=== PATIENT | female | born 1980 | race Caucasian/White ===

== ENCOUNTER 2016-06-18 19:17 | Emergency (ER) | payer OTHER ==
[2016-06-18 19:57] VITALS: BP 144/85
--- NOTE | 2016-06-18 20:45 | UC ---
Throat Pain/Nasal [place] HPI - HPI Summary HPI Summary: ST starting 3-4 days ago, lots of trouble with eating and talking. Also coughing and blowing nose, says a few weeks ago she had a cold followed by "sinusy stuff that went away on its own." Has been carrying rescue inhaler, she only needs it when she gets sick. Denies recent abx, steroids, inhaled steroids , or DM. - History of Current Complaint Chief Complaint: UCRespiratory Stated Complaint: SORE THROAT Time Seen by Provider: 06/18/16 20:27 Hx Obtained From: Patient Hx Last Menstrual Period: MIRENA IUD ?: No Onset/Duration: Gradual Onset, Lasting Days Severity: Moderate Cough: None - Allergies/Home Medications Allergies/Adverse Reactions: Allergies Allergy/AdvReac Type Severity Reaction Status Date / Time Prochlorperazine Allergy Severe "PUT ME Verified 06/18/16 19:56 [From Compazine] INTO A VEGETABLE STATE" Sulfa Drugs Allergy Severe TONGUE, Verified 06/18/16 19:56 THROAT SWELLING Home Medications: Home Medications Gabapentin CAP(*) [Neurontin 300 CAP(*)] 300 mg PO DAILY 06/18/16 [History Confirmed 06/18/16] Gerd Med* 06/18/16 [History] Topiramate TAB(*) [Topamax 25 MG(*)] 06/18/16 [History] PMH/Surg Hx/FS Hx/Imm Hx Endocrine History Of: Denies: Diabetes, Thyroid Disease Cardiovascular History Of: Reports: Cardiac Disorders - during Denies: Hypertension, Pacemaker/ICD Respiratory History Of: Denies: COPD, Asthma GI/ History Of: Denies: Ulcer, Renal Disease - Surgical History Surgical History: Yes Surgery Procedure, Year, and Place: [place] teeth extractions. TUBE THAT WENT THROUGH TEAR DUCT DOWN NOSE AND REMOVED - Family History Known Family History: Positive: Hypertension - Social History Occupation: Employed Full-time Lives: With Family Alcohol Use: Rare Substance Use Type: None Smoking Status (MU): Current Every Day Smoker Type: Cigarettes Amount Used/How Often: 2-6 cig./day Have You Smoked in the Last Year: Yes When Did the Patient Quit Smoking/Using Tobacco: 3.5 months ago Review of Systems Constitutional: Negative Skin: Negative Eyes: Negative ENT: Sore Throat, Nasal Discharge Respiratory: Cough Cardiovascular: Negative Gastrointestinal: Negative Genitourinary: Negative Motor: Negative Neurovascular: Negative Musculoskeletal: Negative Neurological: Negative Psychological: Negative All Other Systems Reviewed And Are Negative: Yes Physical Exam Triage Information Reviewed: Yes Appearance: Well-Appearing, No Pain Distress, Well-Nourished Vital Signs: Initial Vital Signs Temp 98.6 F 06/18/16 19:52 Pulse 75 06/18/16 19:52 Resp 16 06/18/16 19:52 BP 144/85 06/18/16 19:52 Pulse Ox 100 06/18/16 19:52 Vital Signs Reviewed: Yes Eye Exam: Normal Eyes: Positive: Conjunctiva Clear ENT: Positive: Hearing grossly normal, Pharyngeal erythema - with white spots on soft palate and oropharynx, Nasal congestion, TMs normal. Negative: Nasal drainage Dental Exam: Normal Neck exam: Normal Neck: Positive: Supple, Nontender, No Lymphadenopathy Respiratory Exam: Normal Respiratory: Positive: Chest non-tender, Lungs clear, Normal breath sounds, No respiratory distress, No accessory muscle use Cardiovascular Exam: Normal Cardiovascular: Positive: RRR, No Murmur Musculoskeletal Exam: Normal Neurological Exam: Normal Psychological Exam: Normal Skin Exam: Normal Throat Pain/Nasal Course/Dx - Differential Dx/Diagnosis Provider Diagnoses: oropharyngeal candidiasis Discharge - Discharge Plan Condition: Stable Disposition: HOME Prescriptions: Clotrimazole TITUS* [Mycelex Titus*] 10 mg PO SEE INSTRUCTIONS #70 titus Patient Education Materials: Oral Candidiasis (ED) Referrals: Carlos Wilson MD [Medical Doctor] - Additional Instructions: Please see your primary care provider in 1-2 weeks to make sure you are improving and to discuss whether you may need further testing as to why you may have developed thrush.
== END 2016-06-18 21:12 | disposition home or self-care (01) ==
LOC: UCEAST 19:17
DX: B37.0 Candidal stomatitis (principal); Z88.2 Allergy status to sulfonamides; Z88.8 Allergy status to other drugs, medicaments and biological substances; Z87.891 Personal history of nicotine dependence
CPT/HCPCS: 87651; 99212; G0463

== ENCOUNTER 2016-08-09 18:41 | Emergency (ER) | payer OTHER ==
[2016-08-09 19:01] VITALS: BP 164/94
--- NOTE | 2016-08-09 19:37 | UC ---
Cardiac HPI - HPI Summary HPI Summary: 36 YO FEMALE WITH ONSET OF SEVERE DYSPEPSIA ABOUT 2:50 PM FOLLOWED BY THAT HAD "A FULL BLOWN PANIC ATTACK" ASSOCIATED WITH CP/SOB/TREMORS AND OVERWHELMING ANXIETY TOOK TUMS TO ATARAX FEELS BETTER BUT NOT BACK TO NORMAL - History of Current Complaint Chief Complaint: UCGeneralIllness Stated Complaint: PANIC ATTACK PULSE IRR Time Seen by Provider: 08/09/16 19:12 Hx Obtained From: Patient Onset/Duration: Sudden Onset, Lasting Hours Timing: Constant Initial Severity: Severe Current Severity: Mild Pain Intensity: 3 Chest Pain Location: Diffuse, Mid Sternal Character: Burning Aggravating: Nothing Alleviating: OTC Meds - TUMS Associated Signs & Symptoms: Positive: Chest Pain, Anxiety, Recent Stress, SOB, Palpitations. Negative: Vision Changes, Headaches, Numbness, Tingling, Weakness , Dizziness, Swelling, Syncope, Fever, Diaphoresis, Nausea/Vomiting, Cough, Hemoptysis, Back Pain, Abdominal Pain, Calf Pain/Swelling - Allergy/Home Medications Allergies/Adverse Reactions: Allergies Allergy/AdvReac Type Severity Reaction Status Date / Time Prochlorperazine Allergy Severe "PUT ME Verified 08/09/16 18:51 [From Compazine] INTO A VEGETABLE STATE" Sulfa Drugs Allergy Severe TONGUE, Verified 08/09/16 18:51 THROAT SWELLING Home Medications: Home Medications Alprazolam 0.25 mg PO DAILY PRN 08/09/16 [History Confirmed 08/09/16] Omeprazole CAP* [Prilosec CAP* 20 MG] 20 mg PO DAILY 08/09/16 [History Confirmed 08/09/16] PMH/Surg Hx/FS Hx/Imm Hx Previously Healthy: Yes Endocrine History Of: Denies: Diabetes, Thyroid Disease Cardiovascular History Of: Reports: Cardiac Disorders - valve problem Denies: Hypertension, Pacemaker/ICD Respiratory History Of: Denies: COPD, Asthma GI/ History Of: Denies: Ulcer, Renal Disease - Surgical History Surgical History: Yes Surgery Procedure, Year, and Place: [place] teeth extractions. TUBE THAT WENT THROUGH TEAR DUCT DOWN NOSE AND REMOVED - Family History Known Family History: Positive: Cardiac Disease, Hypertension - Social History Alcohol Use: Rare Substance Use Type: None Smoking Status (MU): Light Every Day Tobacco Smoker Type: Cigarettes Amount Used/How Often: 2-6 cig./day Have You Smoked in the Last Year: Yes When Did the Patient Quit Smoking/Using Tobacco: 3.5 months ago - Immunization History Most Recent Influenza Vaccination: none Review of Systems Constitutional: Negative Skin: Negative Eyes: Negative ENT: Negative Respiratory: Shortness Of Breath Cardiovascular: Chest Pain Gastrointestinal: Negative Genitourinary: Negative Motor: Negative Neurovascular: Negative Musculoskeletal: Negative Neurological: Negative Psychological: Anxious All Other Systems Reviewed And Are Negative: Yes Physical Exam Triage Information Reviewed: Yes Appearance: Well-Appearing, No Pain Distress, Well-Nourished Vital Signs: Initial Vital Signs Temp 99.2 F 08/09/16 18:54 Pulse 90 08/09/16 18:54 Resp 16 08/09/16 18:54 BP 164/94 08/09/16 18:54 Pulse Ox 100 08/09/16 18:54 Vital Signs Reviewed: Yes Eyes: Positive: Conjunctiva Clear ENT: Positive: Hearing grossly normal. Negative: Nasal congestion, Nasal drainage, Tonsillar exudate, Trismus, Muffled/hoarse voice Neck: Positive: Supple, Nontender Respiratory: Positive: Lungs clear, Normal breath sounds, No respiratory distress, No accessory muscle use Cardiovascular: Positive: RRR, No Murmur Abdomen Description: Positive: Nontender, No Organomegaly Bowel Sounds: Positive: Present Musculoskeletal: Positive: ROM Intact, No Edema Neurological: Positive: Alert Psychological Exam: Normal Skin Exam: Normal Skin: Positive: rashes Diagnostics - EKG Cardiac Rate: NL Cardiac Rhythm: Sinus: Normal Ectopy: None ST Segment: Normal - Clinical Impression Provider Diagnoses: DYSPEPSIA. PALPITATIONS. ANXIETY Discharge - Discharge Plan Condition: Stable Disposition: HOME Patient Education Materials: Palpitations (ED), Indigestion (ED), Anxiety (ED) Forms: *Work Release Referrals: Michael DÍAZ,Jez Solomon [Primary Care Provider] - As Soon As Possible Additional Instructions: TRY TO GET IN TO SEE YOUR MD TOMORROW IF NOT BETTER TOMORROW YOU MAY RETURN HERE FOR RECHECK IF YOUR MD CAN'T SEE YOU
[2016-08-09] MEDS ORDERED: Acetaminophen TAB* 325 MG PO ONE (19:54)
== END 2016-08-09 20:15 | disposition home or self-care (01) ==
LOC: UCEAST 18:41
DX: R10.13 Epigastric pain (principal); F17.210 Nicotine dependence, cigarettes, uncomplicated; R00.2 Palpitations; F41.9 Anxiety disorder, unspecified
CPT/HCPCS: 93005; 99212; A9270-GY; G0463

== ENCOUNTER 2016-09-14 17:13 | Emergency (ER) | payer OTHER ==
[2016-09-14 17:40] VITALS: BP 138/95
--- NOTE | 2016-09-14 19:06 | UC ---
Cardiac HPI - HPI Summary HPI Summary: ONSET OF MID UPPER BACK PAIN THAT RADIATES THROUGH TO HER CHEST LAST NIGHT ABOUT 7PM. HAD A STRESS ECHO EARLIER IN THE AFTERNOON PART OF A CARDIAC WORK- UP FOR PALPITATIONS. IS CURRENTLY WEARING A HOLTER MONITOR AND BEING FOLLOWED BY [facility]. STATES PAIN IS WORSE WITH EXERTION, BETTER WITH REST. EPISODES LAST SEVERAL SECONDS THEN RESOLVE. OCCURRING SEVERAL TIMES PER HOUR. REPORTS SOME ASSOCIATED SOB. NO NAUSEA OR SWEATS. IS A SMOKER. - History of Current Complaint Stated Complaint: CHEST,SHOULDER,BACK PAIN,SOB Time Seen by Provider: 09/14/16 17:20 Hx Obtained From: Patient Onset/Duration: Sudden Onset, Lasting Hours, Still Present Timing: Intermittent Episodes Lasting: - SECONDS Initial Severity: Moderate Current Severity: Moderate Pain Intensity: 5 Chest Pain Location: Mid Sternal Character: Sharp/Stabbing Aggravating: Exertion Alleviating: Rest Associated Signs & Symptoms: Positive: Chest Pain, Anxiety, Palpitations, Back Pain. Negative: Dizziness, SOB, Syncope, Fever, Diaphoresis, Nausea/Vomiting - Allergy/Home Medications Allergies/Adverse Reactions: Allergies Allergy/AdvReac Type Severity Reaction Status Date / Time Prochlorperazine Allergy Severe "PUT ME Verified 09/14/16 17:32 [From Compazine] INTO A VEGETABLE STATE" Sulfa Drugs Allergy Severe TONGUE, Verified 09/14/16 17:32 THROAT SWELLING PMH/Surg Hx/FS Hx/Imm Hx Endocrine History Of: Denies: Diabetes, Thyroid Disease Cardiovascular History Of: Reports: Cardiac Disorders - valve problem Denies: Hypertension, Pacemaker/ICD Respiratory History Of: Denies: COPD, Asthma GI/ History Of: Denies: Ulcer, Renal Disease - Surgical History Surgical History: Yes Surgery Procedure, Year, and Place: [place] teeth extractions. TUBE THAT WENT THROUGH TEAR DUCT DOWN NOSE AND REMOVED - Family History Known Family History: Positive: Cardiac Disease, Hypertension - Social History Alcohol Use: Rare Substance Use Type: None Smoking Status (MU): Light Every Day Tobacco Smoker Type: Cigarettes Amount Used/How Often: 2-6 cig./day Have You Smoked in the Last Year: Yes When Did the Patient Quit Smoking/Using Tobacco: 3.5 months ago - Immunization History Most Recent Influenza Vaccination: none Review of Systems Constitutional: Negative Respiratory: Negative Cardiovascular: Palpitations, Chest Pain Gastrointestinal: Negative All Other Systems Reviewed And Are Negative: Yes Physical Exam Triage Information Reviewed: Yes Appearance: Well-Appearing, No Pain Distress, Well-Nourished Vital Signs: Initial Vital Signs Temp 98.3 F 09/14/16 17:34 Pulse 84 09/14/16 17:34 Resp 20 09/14/16 17:34 BP 138/95 09/14/16 17:34 Pulse Ox 100 09/14/16 17:34 Vital Signs Reviewed: Yes Eyes: Positive: Conjunctiva Clear ENT: Positive: Hearing grossly normal Neck: Positive: Supple Respiratory Exam: Normal Cardiovascular Exam: Normal Abdomen Description: Positive: Soft Musculoskeletal: Positive: No Edema Neurological: Positive: Alert Psychological: Positive: Age Appropriate Behavior Skin: Negative: rashes Diagnostics - EKG Cardiac Rate: NL - 79BPM Cardiac Rhythm: Sinus: Normal Ectopy: None ST Segment: Normal - Differential Diagnoses - Chest Pain Differential Diagnosis/HQI/PQRI: ACS, Angina, Aortic Aneurysm, Chest Wall, Pulmonary Embolism - Clinical Impression Provider Diagnoses: CHEST PAIN - Physician Notifications Discussed Patient Care With: DR. SEGUNDO Time Discussed With Above Provider: 17:35 - TO [facility] BY PRIVATE CAR Discharge - Discharge Plan Condition: Stable Disposition: AGAINST MEDICAL ADVICE Referrals: Michael DÍAZ,Jez Solomon [Primary Care Provider] -
== END 2016-09-14 17:48 | disposition left against medical advice (07) ==
LOC: UCEAST 17:13
DX: R07.9 Chest pain, unspecified (principal); F17.210 Nicotine dependence, cigarettes, uncomplicated; Z88.2 Allergy status to sulfonamides
CPT/HCPCS: 93005; 99212; G0463

== ENCOUNTER 2016-09-14 18:11 | Emergency (ER) | payer OTHER ==
[2016-09-14 19:17] LABS: Hematocrit 42 % (35-47); Hemoglobin 14.1 g/dl (12.0-16.0); Mean Corpuscular HGB Conc 33 g/dl (31-36); Mean Corpuscular Hemoglobin 30 pg (27-31); Mean Corpuscular Volume 90 fL (80-97); Mean Platelet Volume 11 um3 (7.4-10.4); Red Blood Count 4.72 10^6/ul (4.0-5.4); Red Cell Distribution Width 14 % (10.5-15); White Blood Count 9.9 10^3/ul (3.5-10.8)
--- NOTE | 2016-09-14 19:24 | ED ---
HPI Cardiac - HPI Summary HPI Summary: Pt here w/ chest pain today that started after having a stress test yesterday. Lasts about 15-20 minutes, then goes away w/ shorter, less intense repeat episodes that just keep coming. When these happen, she feels her heart racing and she gets SOB and anxious. Afterwards, she's exhausted. She reports h/o panic attacks since childhood. Had an episode of intense "heartburn" ..... she tried to get to her tums but did not provide relief and instead she felt like the collar of her shirt was choking her. This lead to flushing w/ SOB and anxiety w/ racing heart and nausea. She was seen at later this day - was feeling better when seen and advised to f/u w/ PCP following day. A stress test was ordered and painless - she had this yesterday - no results yet. She also reports she had an echocardiogram which was reported "normal". She is currently wearing a 2 week satellite project site monitor. The company was called and pt's recordings are all NSR, including the one time she pressed the button to indicate SOB. Pt was not aware she was supposed to press the button every time she had these sx but understands to do so now. Reports she's had labs through her PCP's office and told her "vitamin levels and organs are fine". She notes being told once her adrenal glands may be overactive but denies known cortisol testing, including 24 urine collection. She denies known cardiac issues herself however has fam hx of cardiac dz w/ at young age in some. Sister has neurocardiogenic syncope. Pt has "headaches" for which she takes topamax. No change in dose. Also has chronic Rt foot pain from an injury. Takes 300mg gabapentin most days, but has missed a full week as of late. This is longest she's gone without since starting. Denies BERNSTEIN, numbness, tingling, change in vision. She has GERD and takes omperazole daily - tums for breakthrough. Denies new foods, beverages etc. Does make coffee regularly but denies every finishing a full cup as she's a single mom and too busy. Denies excessive caffeine otherwise. Smokes - has been smoking more since sx started d/t anxiety. ETOH use is "rare" - makes her sick. Denies illicit drug use. Asthma - uses albuterol inhaler rarely. No known pulm dz otherwise. Denies h/o clotting issues, PE, DVT, etc. Does have a mirena - no period since placed a few years ago. No known h/o cancer. - History of Current Complaint Chief Complaint: EDChestPainROMI Stated Complaint: CHEST PAIN Time Seen by Provider: 09/14/16 18:28 Hx Obtained From: Patient Pain Intensity: 3 - Allergy/Home Medications Allergies/Adverse Reactions: Allergies Allergy/AdvReac Type Severity Reaction Status Date / Time Prochlorperazine Allergy Severe "PUT ME Verified 09/14/16 17:32 [From Compazine] INTO A VEGETABLE STATE" Sulfa Drugs Allergy Severe TONGUE, Verified 09/14/16 17:32 THROAT SWELLING PMH/Surg Hx/FS Hx/Imm Hx Previously Healthy: Yes Endocrine/Hematology History: Denies: Hx Anticoagulant Therapy, Hx Blood Disorders, Hx Diabetes, Hx Thyroid Disease, Hx Anemia, Hx Unexplained Bleeding, Hx Coagulopothy Cardiovascular History: Denies: Hx Hypertension, Hx Pacemaker/ICD Respiratory History: Denies: Hx Asthma, Hx Chronic Obstructive Pulmonary Disease (COPD) GI History: Denies: Hx Ulcer History: Denies: Hx Renal Disease Sensory History: Denies: Hx Hearing Aid Psychiatric History: Reports: Hx Anxiety, Hx Panic Disorder - Surgical History Surgery Procedure, Year, and Place: [place] teeth extractions. 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 Negative: Fever, Chills Physical Exam Vital Signs On Initial Exam: Initial Vitals Temp Pulse Resp BP Pulse Ox 99.2 F 88 20 141/98 99 09/14/16 18:16 09/14/16 18:16 09/14/16 18:16 09/14/16 18:16 09/14/16 18:16 Diagnostics - Vital Signs Vital Signs Temp Pulse Resp BP Pulse Ox 09/14/16 19:00 71 97 09/14/16 18:58 72 97 09/14/16 18:22 98.3 F 84 20 141/98 99 09/14/16 18:16 99.2 F 88 20 141/98 99 - Laboratory Lab Statement: Any lab studies that have been ordered have been reviewed, and results considered in the medical decision making process.
[2016-09-14 19:25] LABS: Urine Bilirubin Negative (Negative); Urine Glucose Negative (Negative); Urine Nitrite Negative (Negative)
[2016-09-14 19:29] LABS: Albumin 4.2 g/dL (3.2-5.2); C Reactive Protein 2.34 mg/L (< 5.00); Calcium 9.2 mg/dL (8.6-10.3); EGFR African American 95.5 (>60); EGFR Non-African American 74.2 (>60); Magnesium 2.1 mg/dL (1.9-2.7); Potassium 3.6 mmol/L (3.5-5.0); Total Bilirubin 0.3 mg/dL (0.2-1.0); Total Protein 7.2 g/dL (6.4-8.9)
[2016-09-14 19:44] LABS: TSH (Thyroid Stimulating Horm) 1.96 mcIU/mL (0.34-5.60)
--- NOTE | 2016-09-14 19:49 | RAD ---
INDICATION: Chest pain COMPARISON: Chest x-ray dated March 12, 2014 TECHNIQUE: PA and lateral views of the chest were obtained. FINDINGS: The heart and mediastinum are normal in size and contour. The lungs are grossly clear. There is no evidence of large pleural effusion. Similar the previous chest x-ray a sagittally oriented line overlying the right lung apex is most consistent with an azygos lobe fissure. Visualized bones are normal for the patient's age. There is no radiographic evidence of free air beneath the diaphragm IMPRESSION: No radiographic evidence of acute cardiopulmonary disease.
[2016-09-14 23:22] VITALS: BP 101/65
== END 2016-09-14 23:21 | disposition home or self-care (01) ==
LOC: ED 18:11
DX: R53.83 Other fatigue (principal); R07.9 Chest pain, unspecified; R51 Headache; F17.210 Nicotine dependence, cigarettes, uncomplicated
CPT/HCPCS: 36415; 71020; 80053; 81003; 82533; 83605; 83690; 83735; 84443; 84484; 85025; 85379; 85610; 85730; 86140; 93005; 99283

== ENCOUNTER 2016-11-10 12:20 | Emergency (ER) | payer OTHER ==
[2016-11-10 12:25] VITALS: BP 126/88
--- NOTE | 2016-11-10 13:50 | UC ---
Lower Extremity/Ankle HPI - HPI Summary HPI Summary: complaint of right ankle pain that started today after falling down the stairs turned her ankle outward and forward heard a snapping sound unable to ambulate after injury any movement increases the pain constant aching pain radiates into her lower leg hasn't taken anything for pain - History of Current Complaint Chief Complaint: UCLowerExtremity Stated Complaint: ANKLE INJURY Time Seen by Provider: 11/10/16 13:44 Hx Obtained From: Patient Hx Last Menstrual Period: mirena - Allergies/Home Medications Allergies/Adverse Reactions: Allergies Allergy/AdvReac Type Severity Reaction Status Date / Time Prochlorperazine Allergy Severe "PUT ME Verified 09/14/16 17:32 [From Compazine] INTO A VEGETABLE STATE" Sulfa Drugs Allergy Severe TONGUE, Verified 09/14/16 17:32 THROAT SWELLING PMH/Surg Hx/FS Hx/Imm Hx Previously Healthy: Yes Psychological History: Anxiety, Depression Other History Of: Negative For: Anticoagulant Therapy - Surgical History Surgical History: Yes Surgery Procedure, Year, and Place: [place] teeth extractions. TUBE THAT WENT THROUGH TEAR DUCT DOWN NOSE AND REMOVED - Family History Known Family History: Positive: Cardiac Disease - early cardiac related , pacemakers; sister w/ neurocardiac syncop, Hypertension Negative: Diabetes - Social History Occupation: Employed Full-time Lives: With Family Alcohol Use: Rare Substance Use Type: None Smoking Status (MU): Current Every Day Smoker Type: Cigarettes Amount Used/How Often: 2-6 cig./day Have You Smoked in the Last Year: Yes When Did the Patient Quit Smoking/Using Tobacco: 3.5 months ago Cessation Counseling: Patient Advised to Stop - Immunization History Most Recent Influenza Vaccination: none Review of Systems Constitutional: Negative Skin: Negative Eyes: Negative ENT: Negative Respiratory: Negative Cardiovascular: Negative Gastrointestinal: Negative Genitourinary: Negative Motor: Negative Neurovascular: Negative Musculoskeletal: Other: - right ankle and foot pain Neurological: Negative Psychological: Negative All Other Systems Reviewed And Are Negative: Yes Physical Exam Triage Information Reviewed: Yes Appearance: No Pain Distress, Well-Nourished Vital Signs: Initial Vital Signs Temp 98 F 11/10/16 12:21 Pulse 90 11/10/16 12:21 Resp 16 11/10/16 12:21 BP 126/88 11/10/16 12:21 Pulse Ox 100 11/10/16 12:21 Vital Signs Reviewed: Yes Eyes: Positive: Conjunctiva Clear ENT: Positive: Pharynx normal, TMs normal Neck: Positive: No Lymphadenopathy Respiratory: Positive: Lungs clear, Normal breath sounds, No respiratory distress, No accessory muscle use Cardiovascular: Positive: RRR, No Murmur, Pulses Normal Abdomen Description: Positive: Nontender, Soft Bowel Sounds: Positive: Present Musculoskeletal: Positive: Other: - RLE-tenderness and edema throughout lateral side of ankle, tenderness in 4th and 5th metatarsals Full ROM dorsi/ plantar flexion, inversion & eversion. [place] test negative. Neurological: Positive: Alert Psychological Exam: Normal Skin Exam: Normal Lower Extremity Course/Dx - Differential Dx/Diagnosis Differential Diagnosis/HQI/PQRI: Fracture (Closed), Sprain, Strain Provider Diagnoses: right ankle sprain Discharge - Discharge Plan Condition: Stable Disposition: HOME Patient Education Materials: Ankle Sprain (ED), RICE Therapy (ED) Referrals: Jez Rodriguez MD [Primary Care Provider] - Jez Martinez MD [Medical Doctor] - Additional Instructions: ANKLE SPRAIN What is an Ankle Sprain? An ankle sprain is a partial or complete tearing of the ligaments that support the ankle joint. Most ankle sprains affect the ligaments on the outside of the joint. X-rays will not show ligament injury and are often not needed for simple sprains. Symptoms Might Include: Pain in your ankle, foot, or lower leg area Bruising and/or Swelling Possible deformity (bones not lined up as usual) Treatment Recommendations: You should prop your foot up above the level of your heart for the first 24 to 48 hours. This helps cut down on the pain and swelling. You should put an ice pack wrapped in a towel on the injured area for 15 to 20 minutes every 2 to 3 hours when you are awake for the first 2 to 3 days. A compression dressing, like a Velcro splint or Veto wrap, will help give support and cut down on swelling. If the wrap is too tight, it may cause numbness, tingling, paleness, or a cool feeling. If this happens, the wrap should be taken off and put back on looser. Crutches should be used if there is any pain when you put your weight on your foot. You usually only need to use crutches for the first few days. If you have a more severe sprain you might need to use them longer. As the pain gets better , try to walk without the crutches a little at a time until you can walk without any pain. When your sprain starts to get better you should start exercising. Sit with your ankle off the ground and move it around in all directions 4 to 6 times a day as long as it is not painful. When you can walk without crutches, slowly start to increase your activity by walking short distances. Remember not to overdo it. It may take 3 to 4 weeks to completely get better, even for a mild sprain. It can take much longer for more severe sprains. More severe sprains will need a splint. You will need to see a healthcare provider again in the next 2 to 3 days. [id number] anti-inflammatory medicine like ibuprofen (Motrin, Advil) or naproxen (Aleve) may help with both the pain and the swelling in your joints. You should not take these medicines if you have a history of bleeding in your stomach. Call Your Doctor or Return Here IF: You have a lot more pain or swelling. If the pain is not getting better in 3 days. If you start to have numbness or tingling in your foot or ankle. If the injured area starts to feel cool to the touch or is pale or bluish in color. If you start to have any other symptoms that worry you.
--- NOTE | 2016-11-10 14:16 | RAD ---
INDICATION: Right ankle pain COMPARISON: None TECHNIQUE: AP, lateral, and oblique views were obtained. FINDINGS: The bony structures, joint spaces, and soft tissues are normal for age. IMPRESSION: NEGATIVE EXAMINATION.
== END 2016-11-10 14:42 | disposition home or self-care (01) ==
LOC: UCEAST 12:20
DX: S93.401A Sprain of unspecified ligament of right ankle, initial encounter (principal); W10.9XXA Fall (on) (from) unspecified stairs and steps, initial encounter; Y93.9 Activity, unspecified; Y92.9 Unspecified place or not applicable; Y99.9 Unspecified external cause status; Z72.0 Tobacco use
CPT/HCPCS: 99213; G0463

== ENCOUNTER 2016-12-20 14:28 | Emergency (ER) | payer OTHER ==
[2016-12-20 14:37] VITALS: BP 139/103
--- NOTE | 2016-12-20 14:39 | UC ---
Complaint Female HPI - HPI Summary HPI Summary: 1. Worried that she could be , 2. took last week off from work and need clearance to return--took time off do to personal stresses, - History Of Current Complaint Chief Complaint: UCGeneralIllness Stated Complaint: PREG TESTING ANXIETY Time Seen by Provider: 12/20/16 14:45 Hx Obtained From: Patient Hx Last Menstrual Period: IUD ?: No Onset/Duration: Sudden Onset, Lasting Days, Still Present Timing: Constant Severity Initially: Moderate Severity Currently: Moderate Pain Intensity: 0 Alleviating Factor(s): Meds - Did take a Vistaril with fair relief of anxiety - Allergies/Home Medications Allergies/Adverse Reactions: Allergies Allergy/AdvReac Type Severity Reaction Status Date / Time Prochlorperazine Allergy Severe "PUT ME Verified 12/20/16 14:37 [From Compazine] INTO A VEGETABLE STATE" Sulfa Drugs Allergy Severe TONGUE, Verified 12/20/16 14:37 THROAT SWELLING Home Medications: Home Medications DULoxetine DR CAP* [Cymbalta CAP*] 20 mg PO BID 12/20/16 [History Confirmed ] PMH/Surg Hx/FS Hx/Imm Hx Previously Healthy: No GI/ History: Gastroesophageal Reflux Psychological History: Anxiety, Other Other Psychological History: panic disorder Other History Of: Negative For: Anticoagulant Therapy - Surgical History Surgical History: Yes Surgery Procedure, Year, and Place: [place] teeth extractions. TUBE THAT WENT THROUGH TEAR DUCT DOWN NOSE AND REMOVED - Family History Known Family History: Positive: Cardiac Disease - early cardiac related , pacemakers; sister w/ neurocardiac syncop, Hypertension Negative: Diabetes - Social History Occupation: Employed Full-time Lives: With Family Alcohol Use: Rare Substance Use Type: None Smoking Status (MU): Current Every Day Smoker Type: Cigarettes Amount Used/How Often: 2-6 cig./day Have You Smoked in the Last Year: Yes When Did the Patient Quit Smoking/Using Tobacco: 3.5 months ago - Immunization History Most Recent Influenza Vaccination: none Review of Systems Constitutional: Negative Skin: Negative Eyes: Negative ENT: Negative Respiratory: Negative Cardiovascular: Negative Gastrointestinal: Negative Genitourinary: Negative Motor: Negative Neurovascular: Negative Musculoskeletal: Negative Neurological: Negative Psychological: Anxious - denies HI/SI has no means or plan to injury herself or others All Other Systems Reviewed And Are Negative: Yes Physical Exam Triage Information Reviewed: Yes Appearance: Well-Appearing, No Pain Distress, Well-Nourished Vital Signs: Initial Vital Signs Temp 99.6 F 12/20/16 14:33 Pulse 97 12/20/16 14:33 Resp 20 12/20/16 14:33 BP 139/103 12/20/16 14:33 Pulse Ox 100 12/20/16 14:33 Vital Signs Reviewed: Yes Eye Exam: Normal Eyes: Positive: Conjunctiva Clear ENT Exam: Normal ENT: Positive: Normal ENT inspection, Hearing grossly normal. Negative: Nasal congestion, Nasal drainage, Trismus, Muffled/hoarse voice Dental Exam: Normal Neck exam: Normal Neck: Positive: Supple, Nontender Respiratory Exam: Normal Respiratory: Positive: Chest non-tender, No respiratory distress, No accessory muscle use Cardiovascular Exam: Normal Cardiovascular: Positive: RRR, No Murmur, Pulses Normal, Brisk Capillary Refill Musculoskeletal Exam: Normal Musculoskeletal: Positive: Strength Intact, ROM Intact, No Edema Neurological Exam: Normal Neurological: Positive: Alert, Muscle Tone Normal Psychological Exam: Normal Psychological: Positive: Normal Response To Family, Other: - teary and worried Skin Exam: Normal Diagnostics - Laboratory Diagnostic Studies Completed/Ordered: u preg (-) Re-Evaluation - Re-Evaluation First Eval Change: Improved - good relief of anxiety with (-) upreg, coping skills reviewed with patients Complaint Female Dx - Course Course Of Treatment: follow with Dr. Rodriguez, Contact [employer] to assist with job, [employer] may be of assistance for counciling support - Differential Dx/Diagnosis Differential Diagnosis/HQI/PQRI: , Urinary Tract Infection, Other - anxiety, panic Provider Diagnoses: Panic disorder, anxiety, high blood pressure with out dx of hypertension Discharge - Discharge Plan Condition: Stable Disposition: HOME Patient Education Materials: Hypertension (ED), Anxiety (ED) Forms: *Work Release Referrals: Michael DÍAZ,Jez Solomon [Primary Care Provider] - 1 Week Additional Instructions[facility] [place] May be a resource in finding a day job---
== END 2016-12-20 15:30 | disposition home or self-care (01) ==
LOC: UCEAST 14:28
DX: F41.0 Panic disorder [episodic paroxysmal anxiety] (principal); R03.0 Elevated blood-pressure reading, without diagnosis of hypertension; K21.9 Gastro-esophageal reflux disease without esophagitis; Z32.02 Encounter for pregnancy test, result negative; Z87.891 Personal history of nicotine dependence; Z88.2 Allergy status to sulfonamides
CPT/HCPCS: 81003; 84702; 99211; G0463

== ENCOUNTER 2017-06-02 14:38 | Emergency (ER) | payer OTHER ==
[2017-06-02 18:07] VITALS: BP 147/92
--- NOTE | 2017-06-02 18:43 | UC ---
Yulia Staton Julia, scribed for Tong Milan MD on 06/02/17 at 1758 . FLU HPI - HPI Summary HPI Summary: This patient is a 37 year old F presenting to [facility] with a chief complaint of general malaise since 05/31/17, worsening today. Patient reports chest pain, cough , ear pain, head pain, and sinus congestion. The patient rates the pain 10/10 in severity. Pt has 1 sick contact at home. Pt wants to make sure medications to treat her symptoms will not conflict with current medications. - History of Current Complaint Chief Complaint: UCRespiratory Stated Complaint: CHEST CONGESTION, COUGH, AND SINUS CONGESTION Time Seen by Provider: 06/02/17 17:41 Hx Obtained From: Patient Hx Last Menstrual Period: 4 yrs ago Onset/Duration: Lasting Days Severity Currently: None Severity Initially: Moderate Pain Intensity: 10 Pain Scale Used: 0-10 Numeric Associated Signs & Symptoms: Positive: Myalgia, Cough, Sore Throat, Nasal Congestion, Headache Related Hx: Possible Flu/Infectious Exposure - Allergy/Home Medications Allergies/Adverse Reactions: Allergies Allergy/AdvReac Type Severity Reaction Status Date / Time MS Prochlorperazine Allergy Severe "PUT ME Verified 06/02/17 15:56 [From Compazine] INTO A VEGETABLE STATE" MS Sulfa Drugs [Sulfa Drugs] Allergy Severe TONGUE, Verified 06/02/17 15:56 THROAT SWELLING PMH/Surg Hx/FS Hx/Imm Hx Psychological History: Anxiety Other History Of: Negative For: Anticoagulant Therapy - Surgical History Surgical History: Yes Surgery Procedure, Year, and Place: [place] teeth extractions. TUBE THAT WENT THROUGH TEAR DUCT DOWN NOSE AND REMOVED - Family History Known Family History: Positive: Cardiac Disease - early cardiac related , pacemakers; sister w/ neurocardiac syncop, Hypertension Negative: Diabetes - Social History Alcohol Use: Rare Substance Use Type: None Smoking Status (MU): Current Every Day Smoker Type: Cigarettes Amount Used/How Often: 2-6 cig./day Have You Smoked in the Last Year: Yes When Did the Patient Quit Smoking/Using Tobacco: 3.5 months ago - Immunization History Most Recent Influenza Vaccination: none Review of Systems ENT: Sore Throat, Ear Ache, Sinus Congestion Respiratory: Cough Cardiovascular: Chest Pain Neurological: Headache All Other Systems Reviewed And Are Negative: Yes Physical Exam Triage Information Reviewed: Yes Vital Signs: Initial Vital Signs Temp 98.9 F 06/02/17 15:53 Pulse 89 06/02/17 15:53 Resp 18 06/02/17 15:53 BP 130/96 06/02/17 15:53 Pulse Ox 100 06/02/17 15:53 Vital Signs Reviewed: Yes - Additional Comments General: mild ill appearing, no pain distress Skin: warm, color reflects adequate perfusion, dry Head: normal Eyes: EOMI, SHEKHAR ENT: posterior pharynx erythema, rhinorrhea Neck: supple, nontender Respiratory: CTA, breath sounds present Cardiovascular: RRR Abdomen: soft, nontender Bowel: present Musculoskeletal: normal, strength/ROM intact Neurological: normal, sensory/motor intact, A&O x3 Psychological: affect/mood appropriate Flu Course/Dx - Course Course Of Treatment: Medications reviewed. BP is noted. - Differential Dx/Diagnosis Provider Diagnoses: INFLUENZA Discharge - Discharge Plan Condition: Stable Disposition: HOME Prescriptions: GuaiFENesin DM* [Robitussin DM*] 10 ml PO Q4H PRN #180 ml PRN Reason: Cough Oseltamivir CAP* [Tamiflu CAP*] 75 mg PO BID #10 cap Patient Education Materials: Influenza (ED) Forms: *Work Release Referrals: Michael DÍAZ,Jez Solomon [Primary Care Provider] - Additional Instructions: FOLLOW UP WITH YOUR DOCTOR. GET RECHECKED FOR ANY WORSENING OF YOUR CONDITION OR QUESTIONS OR CONCERNS. The documentation as recorded by the Yulia argueta Julia accurately reflects the service I personally performed and the decisions made by me, Tong Milan MD.
== END 2017-06-02 18:23 | disposition home or self-care (01) ==
LOC: UCEAST 14:38
DX: J11.1 Influenza due to unidentified influenza virus with other respiratory manifestations (principal); F41.9 Anxiety disorder, unspecified; Z88.2 Allergy status to sulfonamides; Z88.8 Allergy status to other drugs, medicaments and biological substances; F17.210 Nicotine dependence, cigarettes, uncomplicated
CPT/HCPCS: 87502; 99212; G0463

== ENCOUNTER 2017-06-21 17:10 | Emergency (ER) | payer OTHER ==
[2017-06-21 17:39] VITALS: BP 135/97
--- NOTE | 2017-06-21 19:04 | UC ---
Throat Pain/Nasal [place] HPI - HPI Summary HPI Summary: 37 y/o female presents to the urgent care c/o sinus congestion, B/L ear pain, sore throat for the past month. Pt reports she was seen here on 06/02/2017 and Dx w/ influenza. After taking tamiflu symptoms sinus congestion, BERNSTEIN persisted and her PCP Rx Amoxicillin. while taking the ABx symptoms were improving. However, she finished ABX and symptoms returned. Now w/ BERNSTEIN, B/L ear pain and hoarseness. Pt request another ABx that can interfere w/ current medications. Pain is 8/10 at times. Pt denies fever, SOB, chest pain, abdominal pain, N/V/D, dizziness. - History of Current Complaint Chief Complaint: UCEar Stated Complaint: SORE THROAT, AND EAR ACHE Time Seen by Provider: 06/21/17 19:02 Hx Obtained From: Patient Hx Last Menstrual Period: mirena Onset/Duration: Gradual Onset, Lasting Weeks - 4 weeks, Still Present, Worse Since - 4 days Severity: Moderate Pain Intensity: 8 Pain Scale Used: 0-10 Numeric Cough: Nonproductive Associated Signs & Symptoms: Positive: Dysphagia, Sinus Discomfort, Nasal Discharge. Negative: Fever - Epiglottits Risk Factors Epiglottis Risk Factors: Negative - Allergies/Home Medications Allergies/Adverse Reactions: Allergies Allergy/AdvReac Type Severity Reaction Status Date / Time prochlorperazine Allergy Anaphylatic Verified 06/21/17 17:40 [From Compazine] Shock Sulfa (Sulfonamide Allergy Hives Verified 06/21/17 17:40 Antibiotics) PMH/Surg Hx/FS Hx/Imm Hx Previously Healthy: Yes GI/ History: Gastroesophageal Reflux Neurological History: Migraine Psychological History: Anxiety, Depression Other Psychological History: Neuropathy Other History Of: Negative For: Anticoagulant Therapy - Surgical History Surgical History: Yes Surgery Procedure, Year, and Place: [place] teeth extractions. TUBE THAT WENT THROUGH TEAR DUCT DOWN NOSE AND REMOVED - Family History Known Family History: Positive: Cardiac Disease - early cardiac related , pacemakers; sister w/ neurocardiac syncop, Hypertension, Diabetes - Social History Occupation: Employed Full-time Lives: With Family Alcohol Use: Rare Substance Use Type: None Smoking Status (MU): Current Every Day Smoker Type: Cigarettes Amount Used/How Often: 2-6 cig./day Have You Smoked in the Last Year: Yes When Did the Patient Quit Smoking/Using Tobacco: 3.5 months ago - Immunization History Most Recent Influenza Vaccination: none Review of Systems Constitutional: Negative Skin: Negative Eyes: Negative ENT: Sore Throat, Ear Ache - B/L ear pain, Nasal Discharge, Sinus Congestion, Sinus Pain/Tenderness, Other - horseness Respiratory: Cough Cardiovascular: Negative Gastrointestinal: Negative Genitourinary: Negative Motor: Negative Neurovascular: Negative Musculoskeletal: Negative Neurological: Headache Psychological: Negative Is Patient Immunocompromised?: No All Other Systems Reviewed And Are Negative: Yes Physical Exam Triage Information Reviewed: Yes Vital Signs: Initial Vital Signs Temp 98.7 F 06/21/17 17:32 Pulse 73 06/21/17 17:32 Resp 18 06/21/17 17:32 BP 135/97 06/21/17 17:32 Pulse Ox 97 06/21/17 17:32 - Additional Comments Vitals: reviewed General: Well developed, well-nourished female patient with NAD. Head and face: Normocephalic and atraumatic, Positive moderate tenderness over the frontal and maxillary sinuses.. Eyes: PERRLA, EOMI x 2. Normal conjunctiva. No eye discharge. ENT: Ears and TM with normal limits. Nose: with yellowish discharge and erythematous mucosa. Pharynx with erythema , no exudate. +PND yellowish Neck: Supple, no JVD, no carotid bruits and no lymphadenopathy. Lungs: clear, no rales, no rhonchi, no wheezes. CVS: RRR, S1 and S2 present no murmurs or gallops appreciated. Abdomen: soft nontender with positive bowel sounds. Extremities: no edema noted. Neuro: WNL. Skin: warm and dry Throat Pain/Nasal Course/Dx - Course Course Of Treatment: 37 y/o female presents to the urgent care c/o sinus congestion, B/L ear pain, sore throat for the past month. Pt reports she was seen here on 06/02/2017 and Dx w/ influenza. After taking tamiflu symptoms sinus congestion, BERNSTEIN persisted and her PCP Rx Amoxicillin. while taking the ABx symptoms were improving. However, she finished ABX and symptoms returned. Now w / BERNSTEIN, B/L ear pain and hoarseness. Pt request another ABx that can interfere w/ current medications. Pain is 8/10 at times. Pt denies fever, SOB, chest pain, abdominal pain, N/V/D, dizziness. Hx obtained. pt w/ sinusitis on examination. Pt Rx Doxycycline PO and Flonase to alleviate symptoms.Pt's BP is elevated today advised to decrease salt in diet, monitor BP and f/u with PCP for further management. Discharge instructions explained to Pt. Advised to Return to the clinic or PCP if symptoms do not improve.Pt understood and agreed with plan of care. - Differential Dx/Diagnosis Differential Diagnosis/HQI/PQRI: Laryngitis, Mononucleosis, Pharyngitis, Sinusitis, Tonsillitis, URI Provider Diagnoses: 1-Acute bacterial sinusitis. 2- Elevated BP w/o Hx of HTN Discharge - Discharge Plan Condition: Stable Disposition: HOME Prescriptions: DOXYcycline CAP(*) [DOXYcycline 100MG CAP(*)] 100 mg PO BID #20 cap Fluticasone NASAL SPRAY 50MCG* [Flonase NASAL SPRAY 50MCG*] 2 spray RIGHT NARE DAILY #1 btl Patient Education Materials: Sinusitis (ED), Low-Sodium Diet (ED) Referrals: Michael DÍAZ,Jez Solomon [Primary Care Provider] - 1 Week Additional Instructions: 1- Please increase fluid intake and rest. take full course of antibiotic to avoid resistance 2-Use Flonase as directed to help drain fluid. Also buy saline drops to clear sinuses 3-Take Tylenol PO q4-6hrs to alleviates sore throat. Increase fluid intake, rest and eat well 4-Return to the clinic or PCP if symptoms do not improve for further management and treatment 5-Your BP is elevated today. please decrease salt in your diet, monitor BP and if it continues to be elevated please f/u with your PCP for further management
== END 2017-06-21 19:20 | disposition home or self-care (01) ==
LOC: UCEAST 17:10
DX: J01.90 Acute sinusitis, unspecified (principal); B96.89 Other specified bacterial agents as the cause of diseases classified elsewhere; R03.0 Elevated blood-pressure reading, without diagnosis of hypertension; Z87.891 Personal history of nicotine dependence
CPT/HCPCS: 99212; G0463

== ENCOUNTER 2017-07-07 10:42 | Emergency (ER) | payer OTHER ==
[2017-07-07 10:55] VITALS: BP 130/90
--- NOTE | 2017-07-07 11:21 | RAD ---
INDICATION: Injury left fifth digit COMPARISON: None TECHNIQUE: AP, lateral, and oblique views were obtained. FINDINGS: The bony structures, joint spaces, and soft tissues are normal for age. IMPRESSION: NEGATIVE EXAMINATION
--- NOTE | 2017-07-07 12:28 | UC ---
Upper Extremity HPI - HPI Summary HPI Summary: Patient is an otherwise healthy 37-year-old female presenting to the with chief complaint of left fourth and fifth finger pain radiating down into the dorsum of the hand since last evening. She is unknown how she injured hand. She isn't sure if it was a crush injury or a strain. There is no color or temperature changes to the area. She states she felt some numbness and tingling when extending at the wrist, but this is intermittent. Pain is a 9 out of 10 discretely located over the fourth and fifth fingers and dorsum of the ulnar side of the hand. EtOH involved. - History of Current Complaint Chief Complaint: UCUpperExtremity Stated Complaint: HAND INJURY Time Seen by Provider: 07/07/17 10:57 Hx Obtained From: Patient Hx Last Menstrual Period: mirena ?: No Onset/Duration: Sudden Onset Severity Initially: Mild Severity Currently: Mild Pain Intensity: 3 Pain Scale Used: 0-10 Numeric Location Of Pain: Is Discrete @ - L fourth and fifth fingers and dorsum of the ipsilateral hand Character: Aching, Throbbing Aggravating Factor(s): Lifting, Flexion, Internal/External Rotation Associated Signs And Symptoms: Positive: Negative Related History: Dominant Hand Right - Risk Factors Non-Orthopedic Risk Factor: Negative DVT Risk Factors: Negative Septic Arthritis Risk Factor: Negative Compartment Syndrome Risk Factors: Pain - Allergies/Home Medications Allergies/Adverse Reactions: Allergies Allergy/AdvReac Type Severity Reaction Status Date / Time prochlorperazine Allergy Anaphylatic Verified 07/07/17 10:47 [From Compazine] Shock Sulfa (Sulfonamide Allergy Hives Verified 07/07/17 10:47 Antibiotics) PMH/Surg Hx/FS Hx/Imm Hx Previously Healthy: Yes Other History Of: Negative For: Anticoagulant Therapy - Surgical History Surgical History: Yes Surgery Procedure, Year, and Place: [place] teeth extractions. TUBE THAT WENT THROUGH TEAR DUCT DOWN NOSE AND REMOVED - Family History Known Family History: Positive: Cardiac Disease - early cardiac related , pacemakers; sister w/ neurocardiac syncop, Hypertension, Diabetes - Social History Occupation: Employed Full-time Lives: With Family Alcohol Use: Rare Substance Use Type: None Smoking Status (MU): Current Every Day Smoker Type: Cigarettes Amount Used/How Often: 2-6 cig./day Have You Smoked in the Last Year: Yes When Did the Patient Quit Smoking/Using Tobacco: 3.5 months ago - Immunization History Most Recent Influenza Vaccination: none Review of Systems Constitutional: Negative Skin: Negative ENT: Negative Respiratory: Negative Cardiovascular: Negative Motor: Decreased ROM, Weakness Neurovascular: Decreased Sensation Musculoskeletal: Arthralgia Neurological: Negative Is Patient Immunocompromised?: No All Other Systems Reviewed And Are Negative: Yes Physical Exam Triage Information Reviewed: Yes Appearance: Well-Appearing, Well-Nourished Vital Signs: Initial Vital Signs Temp 99 F 07/07/17 10:52 Pulse 90 07/07/17 10:52 Resp 17 07/07/17 10:52 BP 130/90 07/07/17 10:52 Pulse Ox 99 07/07/17 10:52 Vital Signs Reviewed: Yes Eye Exam: Normal Eyes: Positive: Conjunctiva Clear Neck exam: Normal Neck: Positive: Supple, No Lymphadenopathy Respiratory Exam: Normal Respiratory: Positive: Chest non-tender, Lungs clear Musculoskeletal: Positive: ROM Limited @ - unable to flex and extend at the MCP joints of the 4th and 5th fingers. Neurological: Positive: Alert Psychological Exam: Normal Psychological: Positive: Normal Response To Family Skin Exam: Normal Upper Extremity Course/Dx - Course Course Of Treatment: During the course of treatment, the patient is evaluated for left hand pain. Unknown how she has injured the hand. EtOH involved. X- ray obtained which shows no fracture. Likely has a hand sprain or tendon injury. Cockup splint and heaven tape applied. Patient tolerated well. Work note given. she is encouraged to take ibuprofen 6 her milligrams 3 times daily and ice 3 times daily. - Differential Dx/Diagnosis Provider Diagnoses: Hand Sprain Discharge - Discharge Plan Condition: Stable Disposition: HOME Patient Education Materials: Hand Sprain (ED) Forms: *Work Release Referrals: Michael DÍAZ,Jez Solomon [Primary Care Provider] - Additional Instructions: Ibuprofen 600mg three times daily Ice to the area Keep the fingers heaven taped Cock up splint
== END 2017-07-07 11:56 | disposition home or self-care (01) ==
LOC: UCEAST 10:42
DX: S63.92XA Sprain of unspecified part of left wrist and hand, initial encounter (principal); X58.XXXA Exposure to other specified factors, initial encounter; Y92.9 Unspecified place or not applicable; F17.210 Nicotine dependence, cigarettes, uncomplicated; Z88.8 Allergy status to other drugs, medicaments and biological substances; Z88.2 Allergy status to sulfonamides
CPT/HCPCS: 99212; G0463

== ENCOUNTER 2018-02-27 07:08 | Emergency (ER) | payer MEDICAID ==
--- OUTSIDE RECORDS SUMMARY | 2018-02-27 07:14 | XMS REPORT ---
:1980 External Reference #:[id number] Author Organization [facility] Address [address] [place] [address] Phone [phone] Care Team Providers Name Role Phone [facility] Care Team Information X Ray Consultant Unavailable Problems Description No Information Social History Type Date Description Comments Smoking Patient is a current smoker, smokes 2-3 cigarettes per day, also uses every day e-cigarettes. Allergies, Adverse Reactions, Alerts Date Description Reaction Status Severity Comments 02/09/2018 Sulfa active 02/09/2018 Compazine active Medications Medication Date Status Form Strength Qnty SIG Indications Ordering Provider Biotin 00/00/ Active once Unknown 0000 daily Vitamin D 0000/ Active Tablets 5000Unit 3 tabs Unknown 0000 daily. Melatonin 00/00/ Active Tablets 10mg bid Unknown 0000 Hydroxyzine 0000/ Active Capsules 25mg 1 by Unknown Pamoate 0000 mouth every 6 hours as needed Omeprazole 0000/ Active Capsules DR 20mg bid Unknown 0000 Gabapentin 00/00/ Active Capsules 300mg Once Unknown 0000 Daily Xanax 00/00/ Active Tablets 0.25mg 1-2 by Unknown 0000 mouth daily as needed panic Phentermine HCL 00/ Active Capsules 15mg 1 tab by Unknown 0000 mouth every morning Topiramate 00/00/ Active Tablets 100mg 1 by Unknown 0000 mouth twice a day Fluoxetine HCL 0000/ Active Capsules 20mg 1 by Unknown 0000 mouth every day Prednisolone 0000/ Active Suspension 1% Unknown Acetate 0000 kadeem has him on them for 10 days Vital Signs Date Vital Result Comment 02/09/2018 BP Systolic 110 mmHg BP Diastolic 82 mmHg Heart Rate 60 /min Body Temperature 97.6 F Respiratory Rate 17 /min Height 68 inches 5'8" Weight 187.50 lb BMI (Body Mass Index) 28.5 kg/m2 Right Visual Acuity Distance 20/25 Left Visual Acuity Distance 20/20 Results Description No Information Procedures Description No Information Plan of Care 02/09/2018 - Ирина Nuñez, FNPZ02.1 Encounter for pre-employment examinationAllComments:~B_~U_Medication Management~b_~u_ Patient Understands medications he 's taking? Yes No Notapplicable at this visit Are there Barriers to Adherence? Yes No Not applicable at this visit Has the patient been asked about herbal supplements and therapies, and OTC meds? Yes No As always, we strongly encourage a healthy diet and making physical activity a part of your every day life. If you have questions about how or where to start, please contact the office.
[2018-02-27 07:42] VITALS: BP 136/88
--- NOTE | 2018-02-27 07:47 | UC ---
Lower Extremity/Ankle HPI - HPI Summary HPI Summary: 37-year-old woman comes to clinic today with a chief complaint of left great toe pain. 2 days ago on February 25, 2018 she was moving a couch and her left great toe was injured underneath the couch. Part of the toenail was partially ripped off. His been bleeding recurrently. Great deal of pain with any kind of ambulation. It's better with rest and not moving it. Other than the great toe there is no pain or other injury. Not on blood thinners. - History of Current Complaint Chief Complaint: UCLowerExtremity Stated Complaint: TOE COMPLAINT Time Seen by Provider: 02/27/18 07:14 Hx Last Menstrual Period: mirena in place Pain Intensity: 4 - Allergies/Home Medications Allergies/Adverse Reactions: Allergies Allergy/AdvReac Type Severity Reaction Status Date / Time prochlorperazine Allergy Anaphylatic Verified 02/27/18 07:25 [From Compazine] Shock Sulfa (Sulfonamide Allergy Hives Verified 02/27/18 07:25 Antibiotics) Home Medications: Home Medications Cholecalciferol (Vitamin D3) [Vitamin D3] 1,000 unit PO DAILY 02/27/18 [History Confirmed 02/27/18] FLUoxetine CAP* [PROzac CAP*] 20 mg PO BEDTIME 02/27/18 [History Confirmed 02/27] Gabapentin 300 mg PO DAILY 02/27/18 [History Confirmed 02/27/18] Phentermine HCl 15 mg PO DAILY 02/27/18 [History Confirmed 02/27/18] PMH/Surg Hx/FS Hx/Imm Hx Other Endocrine History: GESTATIONAL DIABETES Other Neurological History: PERIFERAL NEUROPATHY Other History Of: Negative For: Anticoagulant Therapy - Surgical History Surgical History: Yes Surgery Procedure, Year, and Place: [place] teeth extractions. TUBE THAT WENT THROUGH TEAR DUCT DOWN NOSE AND REMOVED - Family History Known Family History: Positive: Cardiac Disease - early cardiac related , pacemakers; sister w/ neurocardiac syncop, Hypertension, Diabetes - Social History Alcohol Use: Rare Substance Use Type: None Smoking Status (MU): Current Every Day Smoker Type: Cigarettes Amount Used/How Often: 2-6 cig./day Have You Smoked in the Last Year: Yes When Did the Patient Quit Smoking/Using Tobacco: 3.5 months ago Household Exposure Type: Cigarettes - Immunization History Most Recent Influenza Vaccination: none Review of Systems Constitutional: Negative Skin: Other - SEE HPI Eyes: Negative ENT: Negative Respiratory: Negative Cardiovascular: Negative Gastrointestinal: Negative Motor: Negative Neurovascular: Negative Musculoskeletal: Other: - SEE HPI Neurological: Negative Psychological: Negative Is Patient Immunocompromised?: No All Other Systems Reviewed And Are Negative: Yes Physical Exam Triage Information Reviewed: Yes Appearance: Well-Appearing, Well-Nourished, Pain Distress - MILD Vital Signs: Initial Vital Signs Temp 97.7 F 02/27/18 07:14 Pulse 83 02/27/18 07:14 Resp 18 02/27/18 07:14 BP 136/88 02/27/18 07:14 Pulse Ox 100 02/27/18 07:14 Vital Signs Reviewed: Yes Eye Exam: Normal Neck exam: Normal Neck: Positive: Supple Respiratory: Positive: No respiratory distress Musculoskeletal: Positive: Other: - Left great toe has a partial avulsion of the distal 1/5 of the great toenail. The piece of nail is still on by soft tissue. The rest of the toenail is intact. There is some serosanguineous discharge. No active bleeding no erythema no streaking. Toe has full range of motion or sensation deficit. In the course of cleaning the piece of toenail came off. Neurological Exam: Normal Neurological: Positive: Alert, Muscle Tone Normal Psychological Exam: Normal Psychological: Positive: Age Appropriate Behavior Skin: Positive: Other Lower Extremity Course/Dx - Course Course Of Treatment: Order Information: TOE LEFT GREAT. Accession Number: [id number]. CPT: 59755. HISTORY: pain s/p injury 02/25/18. COMPARISONS: None. VIEWS: 3 , Frontal, lateral, and oblique views of the first digit of the left foot. FINDINGS: BONE DENSITY: Normal. BONES: There is no displaced fracture. JOINTS: There is no arthropathy. ALIGNMENT: There is no dislocation. SOFT TISSUES: Unremarkable. OTHER FINDINGS: None. IMPRESSION: NO ACUTE OSSEOUS INJURY. IF SYMPTOMS PERSIST, RECOMMEND REPEAT IMAGING. . <Electronically signed by Shun Smith MD in OV> 02/27/18 0801. I discussed the x-ray reports with the patient. The wound was cleaned and dressed by nursing and clinic. Patient reports she is up-to-date on her tetanus shot. The plan is to have her on prophylactic antibiotics I don't see any evidence of any infection at this time. Primary care doctor if not completely improved return if worse. - Differential Dx/Diagnosis Provider Diagnoses: LEFT GREAT TOE PARTIAL TOE NAIL AVULSION Discharge - Sign-Out/Discharge Documenting (check all that apply): Patient Departure All imaging exams completed and their final reports reviewed: Yes - Discharge Plan Condition: Stable Disposition: HOME Prescriptions: Cephalexin CAP* [Keflex CAP*] 500 mg PO TID #21 cap Mupirocin 1 applic TOPICAL BID #22 gm Patient Education Materials: Nail Avulsion (ED) Forms: *Work Release Referrals: Michael DÍAZ,Jez Solomon [Primary Care Provider] - Additional Instructions: FOLLOW UP WITH YOUR DOCTOR IF NOT COMPLETELY IMPROVED. GET RECHECKED FOR ANY WORSENING OF YOUR CONDITION OR QUESTIONS OR CONCERNS. - Billing Disposition and Condition Condition: STABLE Disposition: Home
== END 2018-02-27 08:40 | disposition home or self-care (01) ==
LOC: UCEAST 07:08
DX: S91.202A Unspecified open wound of left great toe with damage to nail, initial encounter (principal); W23.0XXA Caught, crushed, jammed, or pinched between moving objects, initial encounter; Y92.9 Unspecified place or not applicable; Z88.2 Allergy status to sulfonamides; Z88.8 Allergy status to other drugs, medicaments and biological substances; Z87.891 Personal history of nicotine dependence
CPT/HCPCS: 99212; G0463

== ENCOUNTER 2019-06-17 10:25 | Emergency (ER) | payer MEDICAID, OTHER ==
[2019-06-17] MEDS ORDERED: Ondansetron INJ* 2 MG/ML VIAL IV ONE (10:32)
[2019-06-17] MEDS: NS 0.9% 1000 ML** 2,000 ML IV ONE ×2 (10:46→12:01)
[2019-06-17 10:51] LABS: Hematocrit 46 % (35-47); Hemoglobin 15.9 g/dL (12.0-16.0); Mean Corpuscular HGB Conc 34 g/dL (31-36); Mean Corpuscular Hemoglobin 31 pg (27-31); Mean Corpuscular Volume 89 fL (80-97); Mean Platelet Volume 10.3 fL (7.4-10.4); Platelet Count 315 10^3/uL (150-450); Red Cell Distribution Width 14 % (10-15); White Blood Count 23.2 10^3/uL (3.5-10.8)
--- NOTE | 2019-06-17 10:52 | ED ---
GI/ HPI - HPI Summary HPI Summary: 39 y/o female presented to [facility] for a suspected stomach virus. At 0000 today she began feeling nauseous, began vomiting at 0200, and began vomiting with diarrhea at 0400. Her 5- and 9-yo children, her mother, and her fiancee have all been exposed to this illness. Pt notes chest and back pain, but denies abd pain. Fhx of diabetes noted. Home Medications Medication Instructions Recorded Confirmed Type hydrOXYzine PAMOATE CAP* [Vistaril 25 mg PO BID 02/05/15 02/27/18 History CAP*] Topiramate TAB(*) [Topamax 25 MG 25 mg PO BID 06/18/16 02/27/18 History tab] ALPRAZolam [Alprazolam] 0.25 mg PO DAILY PRN 08/09/16 02/27/18 History Omeprazole CAP (NF) [Prilosec CAP* 20 mg PO DAILY 08/09/16 02/27/18 History 20 MG] Cephalexin CAP* [Keflex CAP*] 500 mg PO TID #21 cap 02/27/18 Rx Cholecalciferol (Vitamin D3) 1,000 unit PO DAILY 02/27/18 02/27/18 History [Vitamin D3] FLUoxetine CAP* [PROzac CAP*] 20 mg PO BEDTIME 02/27/18 02/27/18 History Gabapentin 300 mg PO DAILY 02/27/18 02/27/18 History Mupirocin 1 applic TOPICAL BID #22 gm 02/27/18 Rx Phentermine HCl 15 mg PO DAILY 02/27/18 02/27/18 History - History of Current Complaint Chief Complaint: EDNauseaVomitDiarrh Time Seen by Provider: 06/17/19 10:32 Stated Complaint: VOMITING AND DIARRHEA PER PT Hx Obtained From: Patient, Family/Family Assistant Hx Last Menstrual Period: mirena in place Onset/Duration: Still Present Timing: Lasting Hours Current Severity: None Pain Intensity: 0 Location of Pain: None Associated Signs and Symptoms: Positive: Back Pain, Nausea, Vomiting, Diarrhea, Other: - CP - Allergy/Home Medications Allergies/Adverse Reactions: Allergies Allergy/AdvReac Type Severity Reaction Status Date / Time prochlorperazine Allergy Anaphylatic Verified 06/17/19 10:30 [From Compazine] Shock Sulfa (Sulfonamide Allergy Hives Verified 06/17/19 10:30 Antibiotics) Home Medications: Home Medications hydrOXYzine PAMOATE CAP* [Vistaril CAP*] 25 mg PO BID 02/05/15 [History Confirmed 02/27/18] Topiramate TAB(*) [Topamax 25 MG tab] 25 mg PO BID 06/18/16 [History Confirmed 02/27/18] ALPRAZolam [Alprazolam] 0.25 mg PO DAILY PRN 08/09/16 [History Confirmed ] Omeprazole CAP (NF) [Prilosec CAP* 20 MG] 20 mg PO DAILY 08/09/16 [History Confirmed 02/27/18] Cephalexin CAP* [Keflex CAP*] 500 mg PO TID #21 cap 02/27/18 [Rx] Cholecalciferol (Vitamin D3) [Vitamin D3] 1,000 unit PO DAILY 02/27/18 [History Confirmed 02/27/18] FLUoxetine CAP* [PROzac CAP*] 20 mg PO BEDTIME 02/27/18 [History Confirmed 02/27] Gabapentin 300 mg PO DAILY 02/27/18 [History Confirmed 02/27/18] Mupirocin 1 applic TOPICAL BID #22 gm 02/27/18 [Rx] Phentermine HCl 15 mg PO DAILY 02/27/18 [History Confirmed 02/27/18] Ondansetron TAB* [Zofran 4 MG Tab*] 4 mg PO Q6H PRN #15 tab 06/17/19 [Rx] Ondansetron TAB* [Zofran 4 MG Tab*] 4 mg PO Q6H PRN #15 tab 06/17/19 [Rx] PMH/Surg Hx/FS Hx/Imm Hx Endocrine/Hematology History: Denies: Hx Anticoagulant Therapy, Hx Blood Disorders, Hx Diabetes, Hx Thyroid Disease, Hx Anemia, Hx Unexplained Bleeding Cardiovascular History: Reports: Hx Hypertension - on meds, Other Cardiovascular Problems/Disorders - TACHYCARDIA Denies: Hx Atrial Fibrillation, Hx Cardiac Arrest, Hx Congenital Heart Disease, Hx Congestive Heart Failure, Hx Coronary Artery Disease, Hx Deep Vein Thrombosis, Hx Embolism, Hx Hypercholesterolemia, Hx Myocardial Infarction, Hx Pacemaker/ICD, Hx Syncope, Hx Valvular Heart Disease Respiratory History: Denies: Hx Asthma, Hx Chronic Obstructive Pulmonary Disease (COPD) GI History: Reports: Hx Gastroesophageal Reflux Disease Denies: Hx Cirrhosis, Hx Crohn's Disease, Hx Gall Bladder Disease, Hx Gastrointestinal Bleed, Hx Ulcer History: Denies: Hx Renal Disease Sensory History: Denies: Hx Hearing Aid Psychiatric History: Reports: Hx Anxiety, Hx Panic Disorder - Surgical History Surgery Procedure, Year, and Place: [place] teeth extractions. TUBE THAT WENT THROUGH TEAR DUCT DOWN NOSE AND REMOVED Infectious Disease History: No Infectious Disease History: Denies: Hx Clostridium Difficile, Hx Hepatitis, Hx Human Immunodeficiency Virus (HIV), Hx of Known/Suspected MRSA, Hx Shingles, Hx Tuberculosis, Hx Known/ Suspected VRE, Hx Known/Suspected VRSA, History Other Infectious Disease, Traveled Outside the [place] in Last 30 Days - Family History Known Family History: Positive: Cardiac Disease - early cardiac related , pacemakers; sister w/ neurocardiac syncop, Hypertension, Diabetes - Social History Alcohol Use: Rare Hx Substance Use: No Substance Use Type: Reports: None Hx Tobacco Use: Yes Smoking Status (MU): Current Every Day Smoker Type: Cigarettes Amount Used/How Often: 2-6 cig./day Have You Smoked in the Last Year: Yes Review of Systems Positive: Chest Pain Positive: Vomiting, Diarrhea, Nausea. Negative: Abdominal Pain Positive: Myalgia - back All Other Systems Reviewed And Are Negative: Yes Physical Exam - Summary Physical Exam Summary: Constitutional: Fatigued, Alert. (-) Distressed Skin: Warm, Dry HENT: Normocephalic; Atraumatic; Dry MM Eyes: Conjunctiva normal Neck: Musculoskeletal ROM normal neck. (-) JVD, (-) Stridor, (-) Tracheal deviation Cardio: Rhythm regular, rate normal, Heart sounds normal; Intact distal pulses; The pedal pulses are 2+ and symmetric. Radial pulses are 2+ and symmetric. (-) Murmur Pulmonary/Chest wall: Effort normal. (-) Respiratory distress, (-) Wheezes, (-) Rales Abd: Soft, (-) tenderness, (-) Distension, (-) Guarding, (-) Rebound Musculoskeletal: (-) Edema Lymph: (-) Cervical adenopathy Neuro: Alert, Oriented x3 Psych: Mood and affect Normal Triage Information Reviewed: Yes Vital Signs On Initial Exam: Initial Vitals Temp Pulse Resp BP Pulse Ox 97.3 F 97 19 154/108 100 06/17/19 10:27 06/17/19 10:27 06/17/19 10:27 06/17/19 10:27 06/17/19 10:27 Vital Signs Reviewed: Yes Procedures - Sedation Patient Received Moderate/Deep Sedation with Procedure: No Diagnostics - Vital Signs Vital Signs Temp Pulse Resp BP Pulse Ox 06/17/19 10:27 97.3 F 97 19 154/108 100 - Laboratory Lab Results: Lab Results 06/17/19 Range/Units 10:40 WBC 23.2 H (3.5-10.8) 10^3/uL RBC 5.20 H (3.70-4.87) 10^6 /uL Hgb 15.9 (12.0-16.0) g/dL Hct 46 (35-47) % MCV 89 (80-97) fL MCH 31 (27-31) pg MCHC 34 (31-36) g/dL RDW 14 (10-15) % Plt Count 315 (150-450) 10^3/uL MPV 10.3 (7.4-10.4) fL Neut % (Auto) Pending Lymph % (Auto) Pending [place] % (Auto) Pending Eos % (Auto) Pending Baso % (Auto) Pending Absolute Neuts (auto) Pending Absolute Lymphs (auto) Pending Absolute Monos (auto) Pending Absolute Eos (auto) Pending Absolute Basos (auto) Pending Absolute Nucleated RBC Pending Nucleated RBC % Pending Result Diagrams: 06/17/19 10:40 06/17/19 10:40 Lab Statement: Any lab studies that have been ordered have been reviewed, and results considered in the medical decision making process. GIGU Course/Dx - Course Course Of Treatment: 39 y/o female presented to [facility] for a suspected stomach virus. At 0000 today she began feeling nauseous, began vomiting at 0200, and began vomiting with diarrhea at 0400. Her 5- and 9-yo children, her mother, and her fiancee have all been exposed to this illness. Pt notes chest and back pain , but denies abd pain. Exam showed fatigue and dry MM. Bloodwork showed WBC H , RBC H, nauts H, lymphs L, CO2 L, creatinine H, glc H, and bilirubin H. Pt was given 650mg PO Tylenol, 30ml PO Maalox, 30mg IV Toradol, 15ml PO Lidocaine, 4mg IV Zofran, and 2L IV NaCl. Patient tolerating PO fluids, feels okay for discharge home. Pt was prescribed Zofran PRN and discharged to home. - Diagnoses Provider Diagnoses: Gastroenteritis Discharge ED - Sign-Out/Discharge Documenting (check all that apply): Patient Departure - dc - Discharge Plan Condition: Stable Disposition: HOME Prescriptions: Ondansetron TAB* [Zofran 4 MG Tab*] 4 mg PO Q6H PRN #15 tab PRN Reason: Nausea/Vomiting Ondansetron TAB* [Zofran 4 MG Tab*] 4 mg PO Q6H PRN #15 tab PRN Reason: Nausea/Vomiting Patient Education Materials: Gastroenteritis (ED) Referrals: Michael DÍAZ,Jez Solomon [Primary Care Provider] - Additional Instructions: Follow up with your primary care provider in 2-3 days. If you experience new or worsening symptoms please return to the ER. - Billing Disposition and Condition Condition: STABLE Disposition: Home - Attestation Statements Document Initiated by Vivienibe: Yes Documenting Scribe: Lalit Winter Provider For Whom Devora is Documenting (Include Credential): Terence Doty DO Scribe Attestation: Lalit Staton scribed for Terence Doty DO on 06/17/19 at 1500. Scribe Documentation Reviewed: Yes Provider Attestation: The documentation as recorded by the Lalit argueta accurately reflects the service I personally performed and the decisions made by Terence martínez DO Status of Scribe Document: Viewed
[2019-06-17 11:07] LABS: ALT 17 U/L (7-52); AST 20 U/L (13-39); Albumin 4.7 g/dL (3.2-5.2); Albumin/Globulin Ratio 1.4 (1-3); Alkaline Phosphatase 78 U/L (34-104); Anion Gap 10 mmol/L (2-11); BUN/Creatinine Ratio 15.3 (8-20); Blood Urea Nitrogen 15 mg/dL (6-24); CO2 Carbon Dioxide 21 mmol/L (22-32); Calcium 9.7 mg/dL (8.6-10.3); Chloride 106 mmol/L (101-111); EGFR African American 76.1 (>60); EGFR Non-African American 62.9 (>60); Globulin 3.4 g/dL (2-4); Glucose 153 mg/dL (70-100); Potassium 3.9 mmol/L (3.5-5.0); Sodium 137 mmol/L (135-145); Total Protein 8.1 g/dL (6.4-8.9)
[2019-06-17 11:08] LABS: ABS Lymphocytes 0.4 10^3/ul (1.0-4.8); ABS Monocytes 0.3 10^3/ul (0-0.8); ABS Neutrophils 22.5 10^3/ul (1.5-7.7); Lymphocyte % 1.8 %
[2019-06-17 11:13] LABS: HCG Pregnancy < 0.60 mIU/mL
[2019-06-17] MEDS ORDERED: Lidocaine 2% VISCOUS* 15 ML UDC PO ONE (11:55)
[2019-06-17] MEDS ORDERED: Al Hydrox/Mg Hydrox/Simet LIQ* 30 ML UDC PO ONE (11:55)
[2019-06-17] MEDS ORDERED: Ketorolac INJ* 30 MG/ML 1 ML VIAL IV PUSH ONE (12:32)
[2019-06-17] MEDS ORDERED: NS 0.9% 1000 ML** 1,000 ML IV ONE (13:01)
[2019-06-17] MEDS ORDERED: Acetaminophen TAB* 325 MG PO ONE (14:17)
[2019-06-17 14:52] VITALS: BP 139/94
== END 2019-06-17 14:52 | disposition home or self-care (01) ==
LOC: ED 10:25
DX: K52.9 Noninfective gastroenteritis and colitis, unspecified (principal); K21.9 Gastro-esophageal reflux disease without esophagitis; F17.210 Nicotine dependence, cigarettes, uncomplicated; M54.9 Dorsalgia, unspecified; I10 Essential (primary) hypertension; Z79.899 Other long term (current) drug therapy; Z88.2 Allergy status to sulfonamides; F41.9 Anxiety disorder, unspecified
CPT/HCPCS: 36415; 80053; 84702; 85025; 96361; 96374; 96375; 99282; A9270-GY; J1885; J2405